=== PATIENT | female | born 1990 | race African-American/Black ===

== ENCOUNTER 2019-09-04 14:01 | Emergency (ER) | payer MEDICAID ==
[~2019-09-04] VITALS: Ht 170.2 cm; Wt 57.0 kg
[2019-09-04 14:40] VITALS: BP 141/84
== END 2019-09-04 17:30 | disposition left against medical advice (07) ==
LOC: ER 14:01
DX: Z53.21 Procedure and treatment not carried out due to patient leaving prior to being seen by health care provider (principal)

== ENCOUNTER 2019-12-15 12:33 | Emergency (ER) | payer MEDICAID ==
[~2019-12-15] VITALS: Ht 170.2 cm; Wt 56.0 kg
[2019-12-15] MEDS ORDERED: FAMOTIDINE 20MG TABLET PO ONE (15:00)
[2019-12-15] MEDS ORDERED: DIPHENHYDRAMINE 50MG CAPSULE PO ONE (15:00)
[2019-12-15] MEDS ORDERED: PREDNISONE 20MG TABLET PO ONE (15:00)
[2019-12-15 15:19] LABS: CLARITY URINE CLEAR (CLEAR); COLOR URINE YELLOW (YELLOW); KETONES URINE NEGATIVE (NEGATIVE); LEUKOCYTE ESTERASE URINE NEGATIVE (NEGATIVE); NITRITE URINE NEGATIVE (NEGATIVE); OCCULT BLOOD URINE NEGATIVE (NEGATIVE); PH URINE 5.5 (4.5-8.0); PROTEIN URINE NEGATIVE (NEGATIVE); SPECIFIC GRAVITY URINE 1.011 (1.005-1.030); UROBILINOGEN URINE 0.2 E.U./dL (0.2-1.0)
[2019-12-15 16:00] VITALS: BP 114/64
== END 2019-12-15 17:09 | disposition home or self-care (01) ==
LOC: ER 12:33
DX: T78.40XA Allergy, unspecified, initial encounter (principal); X58.XXXA Exposure to other specified factors, initial encounter
CPT/HCPCS: 81003; 81025; 99284; J7512; Q0163

== ENCOUNTER 2023-03-27 06:41 | Emergency (ER) | payer MEDICAID, OTHER ==
[~2023-03-27] VITALS: Ht 172.7 cm; Wt 60.2 kg
[2023-03-27 06:50] VITALS: O2SAT 98
[2023-03-27] MEDS ORDERED: AMOX-494 MT (07:59)
[2023-03-27] MEDS ORDERED: IBUP-2029 MT (07:59)
[2023-03-27] MEDS ORDERED: AMOXICILLIN 500 MG CAPSULE PO ONE (08:00)
[2023-03-27] MEDS ORDERED: IBUPROFEN 600MG TABLET PO ONE (08:00)
[2023-03-27 08:45] VITALS: BP 129/87; PULSE 75; RESP 18; TEMP 98.5
== END 2023-03-27 08:51 | disposition home or self-care (01) ==
LOC: ER 06:41
DX: H66.91 Otitis media, unspecified, right ear (principal)
CPT/HCPCS: 99283

== ENCOUNTER 2025-06-06 20:53 | Emergency (ER) | payer MEDICAID ==
[~2025-06-06] VITALS: Ht 170.2 cm; Wt 69.0 kg
[~2025-06-06 20:53] MED LIST: AMOX-494 MT; IBUP-1455 MT
[2025-06-06 21:11] VITALS: O2SAT 100
[2025-06-06 21:25] VITALS: BP 108/71; PULSE 69; RESP 18; TEMP 36.8; O2SAT 99
== END 2025-06-06 23:11 | disposition left against medical advice (07) ==
LOC: ER 20:53
DX: M79.10 Myalgia, unspecified site (principal); M54.9 Dorsalgia, unspecified
CPT/HCPCS: 73502; 81025; 99281